=== PATIENT | female | born 1990 | race Two or more races ===

== ENCOUNTER 2022-08-16 22:14 | Emergency (ER) | payer MEDICAID, OTHER ==
[~2022-08-16] VITALS: Ht 157.5 cm; Wt 68.2 kg
[2022-08-16 22:35] VITALS: BP 142/78
[2022-08-16 23:55] LABS: Urine Bacteria NONE SEEN /hpf (None Seen); Urine Blood Negative /uL (Negative); Urine Specific Gravity 1.041 (1.001-1.035); Urine WBC 23 /hpf (0 - 5)
== END 2022-08-17 01:45 | disposition left against medical advice (07) ==
LOC: ER 22:14
DX: R10.30 Lower abdominal pain, unspecified (principal); Z53.21 Procedure and treatment not carried out due to patient leaving prior to being seen by health care provider
CPT/HCPCS: 81001; 81025

== ENCOUNTER 2025-02-17 00:09 | Emergency (ER) | payer MEDICAID, OTHER ==
[~2025-02-17] VITALS: Ht 157.5 cm; Wt 57.1 kg
[2025-02-17 00:10] VITALS: BP 115/78; PULSE 109; RESP 18; TEMP 97.7; O2SAT 98
[2025-02-17] MEDS ORDERED: SODIUM CHLORIDE 0.9% 1,000 ML IV ONE (01:45)
[2025-02-17] MEDS ORDERED: InsuLIN REG 1unit/0.01ml Soln (100units/ml) IV ONE (01:45)
== END 2025-02-17 02:44 | disposition left against medical advice (07) ==
LOC: ER 00:09
DX: R73.9 Hyperglycemia, unspecified (principal); Z53.21 Procedure and treatment not carried out due to patient leaving prior to being seen by health care provider
CPT/HCPCS: 36600; 82805; 82947; 82962